=== PATIENT | female | born 1990 | race Caucasian/White ===

== ENCOUNTER 2017-04-13 23:23 | Emergency (ER) | payer SELFPAY ==
[~2017-04-13] VITALS: Ht 154.9 cm; Wt 45.0 kg
[~2017-04-13 23:23] MED LIST: MACR100C PO; PHEN1TAB49 PO; Z.0.BCPILL PO
[2017-04-13 23:25] VITALS: BP 128/93; PULSE 95; RESP 16; TEMP 97.9; O2SAT 100
--- NOTE | 2017-04-14 01:20 | PD ---
HPI Chief Complaint: Flank/Kidney Pain Time Seen by Provider: 01:05 Travel History International Travel<30 days: No Contact w/Intl Traveler<30days: No Traveled to known affect area: No History of Present Illness HPI The patient is a 26 year old female who presents to the [facility] emergency department with a history of back pain that began at 6PM today. The pain is sometimes sharp but more often achy. She reports that moving makes it worse. It has been constant. She has had dysuria that began earlier today. She denies any urinary frequency or urgency. She reports having chills earlier today with a subjective fever. She denies having any vaginal discharge. She denies any possibility of being . On review of systems otherwise, she denies any recent cough, congestion, neck pain, chest pain, shortness of breath , abdominal pain, vomiting, diarrhea, or neurologic symptoms. Her last BM was this AM. No blood in her stool. LMP: on it currently, started yesterday. PFSH Past Medical History Narrative Medical The patient's past medical history is significant for kidney stones, utis, cardiac arrhythmia s/p ablation, history of Von Willebrand. Asthma: Yes Autoimmune Disease: No Blood Disorders: Yes (modified verson of von willebrandt disease) Heart Rhythm Problems: Yes (hx SVT) Cardiovascular Problems: Yes (HX OF RAPID HEART RATES IN THE PAST) Diminished Hearing: No Gastrointestinal Disorders: No Genitourinary: No Kidney Stones: Yes Musculoskeletal: No Neurologic: No Psychiatric: No Respiratory: Yes Immunizations Current: Yes Sickle Cell Disease: No Tetanus Vaccination: < 5 Years Influenza Vaccination: No ?: Not LMP: 04/13/2017 : 0 Para: 0 Past Surgical History Narrative Surgical The patient's past surgical history is significant for cardiac ablation, lithotripsy. Cardiac Surgery: Yes (caridac ablasion) Genitourinary Surgery: Yes Social History Alcohol Use: Yes (occasional) Tobacco Use: No Substance Use: No Allergies-Medications (Allergen,Severity, Reaction): Coded Allergies: amoxicillin (Unverified Allergy, Severe, rash, 01/14/17) cephalexin (Unverified Allergy, Severe, rash, 01/14/17) penicillin G (Unverified Allergy, Severe, RASH, 01/14/17) *MDRO Multi-Drug Resistant Organism (Verified Adverse Reaction, Unknown, ) MRSA 2006 Reported Meds & Prescriptions Reported Meds & Active Scripts Active Pyridium (Phenazopyridine HCl) 100 Mg Tab 100 Mg PO Q8 PRN Macrobid (Nitrofurantoin Macrocrystals) 100 Mg Cap 100 Mg PO Q12HR 7 Days Reported Control Pills (Miscellaneous Medication) Tab 1 Tab PO DAILY None currently Review of Systems Except as stated in HPI: all other systems reviewed are Neg General / Constitutional: No: Fever Eyes: No: Visual changes HENT: No: Headaches Cardiovascular: No: Chest Pain or Discomfort Respiratory: No: Shortness of Breath Gastrointestinal: No: Nausea, Vomiting, Diarrhea, Abdominal Pain Genitourinary: Positive: Dysuria, Flank Pain, No: Urgency, Frequency Musculoskeletal: No: Pain Skin: No Rash Neurologic: No: Weakness Psychiatric: No: Depression Endocrine: No: Polydipsia Hematologic/Lymphatic: No: Easy Bruising Physical Exam Narrative General: The patient is a well-developed well-nourished female in no acute distress. Head and Neck exam: Head is normocephalic atraumatic. Eyes: EOMI, pupils are equal round and reactive to light. Nose: Midline septum with pink mucous membranes Mouth: Dentition unremarkable. Moist mucus membranes. Posterior oropharynx is not erythematous. No tonsillar hypertrophy. Uvula midline. Airway patent. Neck: No palpable lymphadenopathy. No nuchal rigidity. No thyromegaly. Cardiovascular: Regular rate and rhythm without murmurs, gallops, or rubs. Lungs: Clear to auscultation bilaterally. No wheezes, rhonchi, or rales. Abdomen: Soft, with reported tenderness on palpation overlying the suprapubic area, no other tenderness on palpation of the other quadrants of the abdomen. No guarding , rebound, or rigidity. Normal bowel sounds are audible. No tenderness on palpation of McBurney's point. Extremities: No calf tenderness on palpation. No clubbing, cyanosis, or edema. 2+ pulses in all 4 extremities. Back: No spinous process tenderness to palpation. Reported bilateral CVA tenderness on palpation. Neurologic Exam: Grossly nonfocal. Skin Exam: No rash noted. Intact skin that is warm and dry. Data Data Last Documented VS Vital Signs Date Time Temp Pulse Resp B/P (MAP) Pulse Ox O2 Delivery O2 Flow Rate FiO2 04/14/17 03:00 19 99 Room Air 04/13/17 23:25 97.9 95 Orders Orders Complete Blood Count With Diff (04/14/17 01:04) Comprehensive Metabolic Panel (04/14/17 01:04) Lipase (04/14/17 01:04) Urinalysis - C+S If Indicated (04/14/17 01:04) Iv Access Insert/Monitor (04/14/17 01:04) Ecg Monitoring (04/14/17 01:04) Oximetry (04/14/17 01:04) Ed Urine Pregnancytest Poc (04/14/17 01:04) Urine Culture (04/14/17 01:05) Ketorolac Inj (Toradol Inj) (04/14/17 02:00) Ondansetron Inj (Zofran Inj) (04/14/17 02:00) Ct Abd/Pel W/O Iv Contrast (04/14/17 01:47) Sulfamet-Trimeth Ds 800-160 Mg (Bactrim (04/14/17 03:00) Labs Laboratory Tests Test 04/14/17 01:05 04/14/17 01:10 Urine Color LIGHT-YELLOW Urine Turbidity CLEAR Urine pH 6.5 Urine Specific [place] 1.005 Urine Protein NEG mg/dL Urine Glucose (UA) NEG mg/dL Urine Ketones NEG mg/dL Urine Occult Blood TRACE Urine Nitrite NEG Urine Bilirubin NEG Urine Urobilinogen LESS THAN 2.0 MG/DL Urine Leukocyte Esterase SMALL Urine RBC LESS THAN 1 /hpf Urine WBC 8 /hpf Urine Squamous Epithelial Cells <1 /hpf Urine Bacteria MANY /hpf Microscopic Urinalysis Comment CULTURE INDICATED White Blood Count 8.2 TH/MM3 Red Blood Count 4.42 MIL/MM3 Hemoglobin 13.4 GM/DL Hematocrit 40.1 % Mean Corpuscular Volume 90.9 FL Mean Corpuscular Hemoglobin 30.2 PG Mean Corpuscular Hemoglobin Concent 33.3 % Red Cell Distribution Width 12.2 % Platelet Count 263 TH/MM3 Mean Platelet Volume 7.4 FL Neutrophils (%) (Auto) 64.2 % Lymphocytes (%) (Auto) 27.9 % Monocytes (%) (Auto) 5.9 % Eosinophils (%) (Auto) 1.5 % Basophils (%) (Auto) 0.5 % Neutrophils # (Auto) 5.3 TH/MM3 Lymphocytes # (Auto) 2.3 TH/MM3 Monocytes # (Auto) 0.5 TH/MM3 Eosinophils # (Auto) 0.1 TH/MM3 Basophils # (Auto) 0.0 TH/MM3 CBC Comment DIFF FINAL Differential Comment Blood Urea Nitrogen 11 MG/DL Creatinine 0.68 MG/DL Random Glucose 84 MG/DL Total Protein 7.6 GM/DL Albumin 4.3 GM/DL Calcium Level 8.8 MG/DL Alkaline Phosphatase 68 U/L Aspartate Amino Transf (AST/SGOT) 14 U/L Alanine Aminotransferase (ALT/SGPT) 24 U/L Total Bilirubin 0.4 MG/DL Sodium Level 138 MEQ/L Potassium Level 3.6 MEQ/L Chloride Level 106 MEQ/L Carbon Dioxide Level 24.8 MEQ/L Anion Gap 7 MEQ/L Estimat Glomerular Filtration Rate 105 ML/MIN Lipase 125 U/L MDM Medical Decision Making Medical Screen Exam Complete: Yes Emergency Medical Condition: Yes Medical Record Reviewed: Yes Differential Diagnosis Pyelonephritis, versus ureteral lithiasis, versus renal colic, versus musculoskeletal strain Narrative Course During the course of the patients emergency department visit, the patients history, examination, and differential diagnosis were reviewed with the patient. The patient was placed on a engine monitor with oximetry and frequent blood pressure monitoring. The patient had IV access obtained and blood work sent for analysis. The patient was initially provided normal saline 1 L IV fluid bolus, Toradol 15 mg IV for pain, Zofran 4 mg IV for nausea. The patients laboratory studies were reviewed and remarkable for a CBC that is within normal limits, CMP is remarkable for an AST of 14, lipase 125, urinalysis shows trace occult blood, small leukocyte esterase, 8 WBCs, less than 1 RBC, many bacteria, culture indicated. Radiology studies were reviewed and remarkable for a CT scan of the abdomen and pelvis that shows no acute abnormality. A Normal examination. The patient was given Bactrim DS 1 by mouth 1. The patient will be discharged home with a prescription for Bactrim and Pyridium. The patient is resting comfortably and feels better, is alert and in no distress. The patients results and examination findings were discussed with the patient. The repeat examination is unremarkable and benign. The history, exam, diagnostic testing, and current condition do not suggest any significant pathology to warrant further testing, continued ED treatment, admission, or surgical evaluation at this point. The vital signs have been stable. The patient does not have uncontrollable pain, intractable vomiting, or other significant symptoms. The patient's condition is stable and appropriate for discharge. The patient will pursue further outpatient evaluation with a primary care physician or other designated or consulting physician as indicated in the discharge instructions. The patient expressed understanding and was agreeable with this plan. Diagnosis Primary Impression: Urinary tract infection Qualified Codes: N39.0 - Urinary tract infection, site not specified; R31.9 - Hematuria, unspecified Referrals: Urologist 1 week Patient Instructions: General Instructions, Urinary Tract Infection in Women ( ED) Med/Other Pt SpecificInfo: Prescription(s) given Scripts Phenazopyridine (Phenazopyridine) 200 Mg Tab 200 MG PO Q8H Y for DYSURIA, #6 TAB 0 Refills Prov: Melissa Galvan MD 04/14/17 Sulfamethoxazole-Trimethoprim (Bactrim DS) 800-160 Mg Tab 1 TAB PO BID for Infection, #13 TAB 0 Refills Prov: Melissa Galvan MD 04/14/17 Disposition: 01 DISCHARGE HOME Condition: Stable Melissa Galvan MD Apr 14, 2017 01:20
[2017-04-14 01:25] LABS: BACTERIA, URINE MANY /hpf; BLOOD, URINE TRACE (NEG); COMMENT (UR) CULTURE INDICATED; CULTURE IF INDICATED CULTURE INDICATED; GLUCOSE,URINE NEG (NEG); KETONE, URINE NEG (NEG); NITRITE,URINE NEG (NEG); PH, URINE 6.5 (5.0-8.5); SQUAMOUS EPITHELIAL CELL URINE <1 /hpf (0-5); URINE COLOR LIGHT-YELLOW (YELLW/STRAW)
[2017-04-14 01:25] LABS: AUTOMATED NEUTROPHIL # 5.3 TH/MM3 (1.8-7.7); BASOPHIL % 0.5 % (0.0-2.0); EOSINOPHIL # 0.1 TH/MM3 (0-0.4); EOSINOPHIL % 1.5 % (0.0-4.0); HEMATOCRIT 40.1 % (35.0-46.0); HEMO FLAGS DIFF FINAL; LYMPH % 27.9 % (9.0-44.0); LYMPHOCYTE # 2.3 TH/MM3 (1.0-4.8); MEAN CELL VOLUME 90.9 FL (80.0-100.0); MEAN CORPUSCULAR HEMOGLOBIN 30.2 PG (27.0-34.0); MEAN CORPUSCULAR HGB CONC 33.3 % (32.0-36.0); MONO % 5.9 % (0.0-8.0); NEUT % 64.2 % (16.0-70.0); PLATELET COUNT 263 TH/MM3 (150-450); RED BLOOD COUNT 4.42 MIL/MM3 (4.00-5.30); RED CELL DISTRIBUTION WIDTH 12.2 % (11.6-17.2); WHITE BLOOD COUNT 8.2 TH/MM3 (4.0-11.0)
[2017-04-14 01:40] LABS: ALT (GPT) 24 U/L (10-53); ANION GAP 7 MEQ/L (5-15); AST (GOT) 14 U/L (15-37); BICARBONATE 24.8 MEQ/L (21.0-32.0); BLOOD UREA NITROGEN 11 MG/DL (7-18); CHLORIDE 106 MEQ/L (98-107); GLOMERULAR FILTRATION RATE 105 ML/MIN (>89); POTASSIUM 3.6 MEQ/L (3.5-5.1); SODIUM (NA) 138 MEQ/L (136-145)
[2017-04-14 01:42] LABS: ALKALINE PHOSPHATASE 68 U/L (45-117); TOTAL BILIRUBIN ADULT 0.4 MG/DL (0.2-1.0)
[2017-04-14] MEDS ORDERED: KETOROLAC TROMETHAMINE 30 MG/ML (IVP) VIAL IV PUSH ONE (02:00)
[2017-04-14] MEDS ORDERED: ONDANSETRON HCL 4 MG/2 ML VIAL IV PUSH ONE (02:00)
[2017-04-14 03:00] VITALS: RESP 19; O2SAT 99
[2017-04-14] MEDS ORDERED: SULFAMETHOXAZOLE-TRIMETHOPRIM DS 800-160 MG TAB PO ONE (03:00)
--- NOTE | 2017-04-14 03:33 | RADRPT ---
EXAM DATE/TIME: 04/14/2017 03:10 [facility] COMPARISON: No previous studies available for comparison. INDICATIONS : Bilateral flank pain with dysuria. ORAL CONTRAST: No oral contrast ingested. RADIATION DOSE: 6.64 CTDIvol (mGy) MEDICAL HISTORY : Renal calculi. SURGICAL HISTORY : Lithotripsy. ENCOUNTER: Initial ACUITY: 1 day PAIN SCALE: 8/10 LOCATION: Bilateral flank TECHNIQUE: Volumetric scanning of the abdomen and pelvis was performed. Using automated exposure control and ad justment of the mA and/or kV according to patient size, radiation dose was kept as low as reasonably achievable to obtain optimal diagnostic quality images. DICOM format image data is available electro nically for review and comparison. FINDINGS: LOWER LUNGS: The visualized lower lungs are clear. LIVER: Homogeneous density without lesion. There is no dilation of the biliary tree. No calcified gallston es. SPLEEN: Normal size without lesion. PANCREAS: Within normal limits. KIDNEYS: Normal in size and shape. There is no mass, stone, or hydronephrosis. ADRENAL GLANDS: Within normal limits. VASCULAR: There is no aortic aneurysm. BOWEL/MESENTERY: The stomach, small bowel, and colon demonstrate no acute abnormality. There is no free intraperitone al air or fluid. ABDOMINAL WALL: Within normal limits. RETROPERITONEUM: There is no lymphadenopathy. BLADDER: No wall thickening or mass. REPRODUCTIVE: Within normal limits. INGUINAL: There is no lymphadenopathy or hernia. MUSCULOSKELETAL: Within normal limits for patient age. CONCLUSION: Normal examination. Yonathan Ratliff MD on April 14, 2017 at 3:32 Board Certified Radiologist. This report was verified electronically.
[2017-04-14] MEDS ORDERED: BACT800T5 PO (03:40)
[2017-04-14] MEDS ORDERED: PHEN-537 PO (03:40)
== END 2017-04-14 03:45 | disposition home or self-care (01) ==
LOC: NEPE 23:23
DX: N39.0 Urinary tract infection, site not specified (principal); B96.20 Unspecified Escherichia coli [E. coli] as the cause of diseases classified elsewhere; Z87.09 Personal history of other diseases of the respiratory system; Z86.2 Personal history of diseases of the blood and blood-forming organs and certain disorders involving the immune mechanism; Z86.79 Personal history of other diseases of the circulatory system; Z87.442 Personal history of urinary calculi
CPT/HCPCS: 74176; 80053; 81001; 83690; 84703; 85025; 87077; 87086; 87186; 96374; 96375; 99285; J1885; J2405